=== PATIENT | male | born 1955 | race Caucasian/White ===

== ENCOUNTER 2017-05-29 07:09 | Emergency (ER) | payer OTHER ==
[~2017-05-29] VITALS: Ht 190.5 cm; Wt 86.0 kg
[~2017-05-29 07:09] MED LIST: ASPI81 PO; LIPI80TA16 PO; LOTR5CAP2 PO; [UNRECOGNIZED DRUG - REMARK]
[2017-05-29] MEDS ORDERED: ONDANSETRON HCL 4 MG/2 ML VIAL IV PUSH ONE (07:15)
[2017-05-29] MEDS ORDERED: HYDROmorphone HCL PF 1 MG/ML VIAL IV PUSH ONE (07:15)
[2017-05-29] MEDS ORDERED: KETOROLAC TROMETHAMINE 30 MG/ML (IVP) VIAL IV PUSH ONE (07:15)
[2017-05-29 07:21] VITALS: BP 135/75; PULSE 71; RESP 16; TEMP 97.9; O2SAT 100
[2017-05-29] MEDS ORDERED: CHOLESTEROL MED (07:29)
[2017-05-29] MEDS ORDERED: LISI10TA3 PO (07:29)
[2017-05-29] MEDS ORDERED: ASPI-183 PO (07:29)
--- NOTE | 2017-05-29 07:30 | PD ---
HPI Chief Complaint: Musculoskeletal Complaint Time Seen by Provider: 07:14 Travel History International Travel<30 days: No Contact w/Intl Traveler<30days: No Traveled to known affect area: No History of Present Illness HPI This 61-year-old male is complaining of bed pain. He is having pain in the left sciatic region which radiates down the left leg. He has had some pain on the right side in the past. Recently he has been doing a lot of walking at work and carrying things. He has to go up and down a ramp a lot. He has been doing fairly well with it and then 2 days ago he started having this pain. Yesterday the pain was more severe and he had to go home from work and he rested. This morning he is been able to walk. He got up and walked outside his house to get the newspaper he fell to the ground. He said he had severe pain at that time going down the left side. There is no direct injury. He does not have any numbness or tingling. He has no dysuria or incontinence. The pain is having now he says is like a lightening bolt going down the leg. It is quite severe he has been taking Tylenol and Motrin for pain at home. He has a history of coronary artery bypass grafting in 2001. He had hernia surgery in 1997. In the early he had surgery on his right shoulder and he has hardware in the shoulder from that surgery. The surgery was to prevent recurrent dislocations PFSH Past Medical History Blood Disorders: No Cancer: No Cardiovascular Problems: Yes (patient states he had a heart attack age 37 ) High Cholesterol: Yes Chest Pain: Yes Endocrine: No Genitourinary: No Hypertension: Yes Immune Disorder: No Musculoskeletal: No Neurologic: No Psychiatric: No Reproductive: No Respiratory: No Myocardial Infarction: Yes Past Surgical History Abdominal Surgery: Yes (inguinal hernia 1999 ) Cardiac Surgery: Yes (CABG 2001) Coronary Artery Bypass Graft: Yes (cabg 4 2001 ) Eye Surgery: Yes Other Surgery: Yes Social History Alcohol Use: Yes (two drinks daily) Tobacco Use: No Substance Use: No Allergies-Medications (Allergen,Severity, Reaction): Coded Allergies: No Known Allergies (Verified Allergy, Severe, 05/29/17) Reported Meds & Prescriptions Reported Meds & Active Scripts Active Reported Caduet (Amlodipine-Atorvastatin) 5-10 Mg Tab 1 Tab PO DAILY Aspirin 325 Mg Tab 325 Mg PO DAILY Lisinopril 10 Mg Tab 10 Mg PO DAILY Review of Systems General / Constitutional: No: Fever, Chills Eyes: No: Diploplia, Blurred Vision HENT: No: Headaches, Vertigo Cardiovascular: No: Chest Pain or Discomfort, Palpitations Respiratory: No: Cough, Shortness of Breath Gastrointestinal: No: Vomiting Genitourinary: No: Urgency, Frequency Musculoskeletal: Positive: Myalgias, Pain Skin: No Rash, No Itching Neurologic: No: Weakness, Dizziness Endocrine: No: Cold Intolerance Hematologic/Lymphatic: No: Easy Bruising Physical Exam Narrative GENERAL: Well-developed male. He arrives by ambulance is quite uncomfortable with his pain. He holds his left leg left leg flexed SKIN: Focused skin assessment warm/dry. HEAD: Atraumatic. Normocephalic. EYES: Pupils equal and round. No scleral icterus. No injection or drainage. ENT: No nasal bleeding or discharge. Mucous membranes pink and moist. NECK: Trachea midline. No JVD. CARDIOVASCULAR: Regular rate and rhythm. No murmur appreciated. RESPIRATORY: No accessory muscle use. Clear to auscultation. Breath sounds equal bilaterally. GASTROINTESTINAL: Abdomen soft, non-tender, nondistended. Hepatic and splenic margins not palpable. MUSCULOSKELETAL: No obvious deformities. No clubbing. No cyanosis. No edema. Sensation of the legs appears intact. There is good strength in plantar and dorsiflexion of the feet. NEUROLOGICAL: Awake and alert. No obvious cranial nerve deficits. Motor grossly within normal limits. Normal speech. PSYCHIATRIC: Appropriate mood and affect; insight and judgment normal. Data Data Last Documented VS Vital Signs Date Time Temp Pulse Resp B/P (MAP) Pulse Ox O2 Delivery O2 Flow Rate FiO2 05/29/17 09:45 60 16 104/53 (70) 95 Room Air 05/29/17 07:21 97.9 Orders Orders Complete Blood Count With Diff (05/29/17 07:14) Basic Metabolic Panel (Bmp) (05/29/17 07:14) Urinalysis - C+S If Indicated (05/29/17 07:14) Ondansetron Inj (Zofran Inj) (05/29/17 07:15) Hydromorphone Pf Inj (Dilaudid Pf Inj) (05/29/17 07:15) Ketorolac Inj (Toradol Inj) (05/29/17 07:15) Ct Lumb Spine W/O Contrast (05/29/17 07:18) Hydromorphone Pf Inj (Dilaudid Pf Inj) (05/29/17 08:00) Prochlorperazine Inj (Compazine Inj) (05/29/17 09:45) Labs Laboratory Tests Test 05/29/17 08:08 White Blood Count 7.7 TH/MM3 Red Blood Count 5.33 MIL/MM3 Hemoglobin 15.9 GM/DL Hematocrit 48.0 % Mean Corpuscular Volume 90.0 FL Mean Corpuscular Hemoglobin 29.8 PG Mean Corpuscular Hemoglobin Concent 33.1 % Red Cell Distribution Width 12.6 % Platelet Count 210 TH/MM3 Mean Platelet Volume 8.2 FL Neutrophils (%) (Auto) 82.4 % Lymphocytes (%) (Auto) 9.4 % Monocytes (%) (Auto) 6.5 % Eosinophils (%) (Auto) 1.3 % Basophils (%) (Auto) 0.4 % Neutrophils # (Auto) 6.4 TH/MM3 Lymphocytes # (Auto) 0.7 TH/MM3 Monocytes # (Auto) 0.5 TH/MM3 Eosinophils # (Auto) 0.1 TH/MM3 Basophils # (Auto) 0.0 TH/MM3 CBC Comment DIFF FINAL Differential Comment Blood Urea Nitrogen 14 MG/DL Creatinine 0.75 MG/DL Random Glucose 115 MG/DL Calcium Level 9.1 MG/DL Sodium Level 140 MEQ/L Potassium Level 3.6 MEQ/L Chloride Level 108 MEQ/L Carbon Dioxide Level 22.4 MEQ/L Anion Gap 10 MEQ/L Estimat Glomerular Filtration Rate 105 ML/MIN [facility] Medical Decision Making Medical Screen Exam Complete: Yes Emergency Medical Condition: Yes Medical Record Reviewed: Yes Differential Diagnosis Differential includes lumbar radiculopathy, herniated disc, Narrative Course CT scan was done and shows extensive degenerative changes and extensive osteophytes. Patient has been given Dilaudid with some improvement of his pain. He will be released with prescription for Flexeril and Lortab. He has hardware in his shoulder from 1979 and I doubt this is MRI compatible Diagnosis Primary Impression: Lumbar radiculopathy, acute Scripts Hydrocodone-Acetaminophen (Coats) 10-325 Mg Tab 1 TAB PO Q4H Y for PAIN for 12 Days, #72 TAB 0 Refills Prov: Tim Dye MD 05/29/17 Cyclobenzaprine (Flexeril) 10 Mg Tab 10 MG PO TID for Muscle Spasm, #30 TAB 0 Refills Prov: Tim Dye MD 05/29/17 Disposition: 01 DISCHARGE HOME Condition: Stable Tim Dye MD May 29, 2017 07:30
[2017-05-29] MEDS ORDERED: CADU5TAB PO (07:43)
[2017-05-29] MEDS ORDERED: HYDROmorphone HCL PF 2 MG/ML VIAL IV PUSH ONE (08:00)
[2017-05-29 08:36] LABS: CALCIUM 9.1 MG/DL (8.5-10.1)
[2017-05-29 08:37] LABS: BICARBONATE 22.4 MEQ/L (21.0-32.0)
[2017-05-29 08:38] LABS: AUTOMATED NEUTROPHIL # 6.4 TH/MM3 (1.8-7.7); BASOPHIL % 0.4 % (0.0-2.0); EOSINOPHIL # 0.1 TH/MM3 (0-0.4); EOSINOPHIL % 1.3 % (0.0-4.0); HEMOGLOBIN 15.9 GM/DL (13.0-17.0); LYMPH % 9.4 % (9.0-44.0); LYMPHOCYTE # 0.7 TH/MM3 (1.0-4.8); MEAN CORPUSCULAR HEMOGLOBIN 29.8 PG (27.0-34.0); MEAN CORPUSCULAR HGB CONC 33.1 % (32.0-36.0); MEAN PLATELET VOLUME 8.2 FL (7.0-11.0); MONO % 6.5 % (0.0-8.0); MONOCYTE # 0.5 TH/MM3 (0-0.9); NEUT % 82.4 % (16.0-70.0); PLATELET COUNT 210 TH/MM3 (150-450); RED BLOOD COUNT 5.33 MIL/MM3 (4.50-5.90); RED CELL DISTRIBUTION WIDTH 12.6 % (11.6-17.2); WHITE BLOOD COUNT 7.7 TH/MM3 (4.0-11.0)
[2017-05-29 08:40] LABS: CREATININE 0.75 MG/DL (0.60-1.30)
--- NOTE | 2017-05-29 08:55 | RADRPT ---
EXAM DATE/TIME: 05/29/2017 07:38 [place] COMPARISON: No previous studies available for comparison. INDICATIONS : Lower back pain radiating down left leg. RADIATION DOSE: 40.20 CTDIvol (mGy) MEDICAL HISTORY : Hypertension. Cardiovascular disease Hypercholesterolemia. SURGICAL HISTORY : CABG Inguinal hernia repair ENCOUNTER: Initial ACUITY: 1 day PAIN SCALE: 10/10 LOCATION: spine TECHNIQUE: Volumetric scanning of the lumbar spine was performed. Multiplanar reconstructions in the sagittal, coronal and oblique axial planes were performed. Using automated exposure control and adjustment of the mA and/or kV according to patient size, radiation dose was kept as low as reasonably achievable t o obtain optimal diagnostic quality images. DICOM format image data is available electronically for review and comparison. FINDINGS: Normal alignment. A few scattered Schmorl nodes are present. There is severe disc space narrowing at L5-S1 identified. Multilevel anterior osteophytosis is noted. Moderate facet hypertrophic changes are seen throughout the lumbar spine. There is atherosclerotic calcification of the aorta and iliac vess els noted. At L2-3 mild diffuse disc bulge is noted. No associated canal or foraminal narrowing. At L 3-4 there is mild canal narrowing secondary to a diffuse disc bulge which abuts the L3 exiting nerves and likely the L4 nerve roots. Moderate facet and ligamentum flavum hypertrophy. Mild bilateral fora prabha encroachment. There is [id number] canal stenosis at L4-5 secondary to a diffuse disc bu lge and severe facet and ligamentum flavum hypertrophy right greater than left. There is abutment of the L4 exiting nerves and mass effect suspected on the nerve roots within the thecal sac. Severe left , moderate right foraminal narrowing. Central disc bulge abuts the S1 nerve roots, and posterior disc osteophyte complex abuts the L5 exiting nerves. There is moderate to severe bilateral foraminal narr owing. CONCLUSION: Moderate multilevel degenerative changes of the spine are noted as above. Ectasia of the infrarenal a bdominal aorta is also noted up to 2.8 cm. Seferino Louis MD on May 29, 2017 at 7:56 Board Certified Radiologist. This report was verified electronically.
[2017-05-29 09:45] VITALS: BP 104/53; PULSE 60; RESP 16; O2SAT 95
[2017-05-29] MEDS ORDERED: PROCHLORPERAZINE INJ 10 MG/2 ML VIAL IV PUSH ONE (09:45)
[2017-05-29] MEDS ORDERED: HYDR-3366 PO (10:09)
[2017-05-29] MEDS ORDERED: CYCL10TA PO (10:09)
[2017-05-29 10:59] VITALS: BP 105/60
== END 2017-05-29 11:01 | disposition home or self-care (01) ==
LOC: PHED 07:09
DX: M54.16 Radiculopathy, lumbar region (principal); E78.00 Pure hypercholesterolemia, unspecified; I10 Essential (primary) hypertension; Z95.1 Presence of aortocoronary bypass graft; I25.2 Old myocardial infarction
CPT/HCPCS: 72131; 80048; 85025; 96374; 96375; 99284; J0780; J1170; J1885; J2405